=== PATIENT | female | born 1990 | race Hispanic/Latino ===

== ENCOUNTER 2016-08-31 00:11 | Emergency (ER) | payer OTHER ==
[~2016-08-31] VITALS: Ht 144.8 cm; Wt 77.7 kg
[~2016-08-31 00:11] MED LIST: FERR325C PO; NPR500T PO
[2016-08-31 00:29] VITALS: BP 115/75; PULSE 89; RESP 18; O2SAT 98
--- NOTE | 2016-08-31 03:14 | ED.REPORT ---
HPI-Headache Date of Service Aug 31, 2016 ED Provider: Tejas Medrano MD History of Present Illness: Ms. Anabell Concepcion is a 25 year old lady with a past medical history significant for spina bifida with CSF shunt and congenital uracus who presents to the [facility] Emergency Department with 1 week history of insomnia and 1 1/2 day history of vomiting and headache with witnessed syncopal episode yesterday. She reports the headache is in the right neck and into the right occipital region, near and around her shunt. She describes the pain as sharp and throbbing, 9/10 at the its worst. She reports she feels better with lying down and worst with eye movement and walking. Nursing Notes Stated Complaint: HEADACHE/ UNABLE TO SLEEP Chief Complaint: Headache Nursing Notes Reviewed: Yes Allergies: Coded Allergies: No Known Allergies (Verified Allergy, Unknown, 10/29/15) Scheduled Ferrous Sulfate (Iron) 325 Mg Capsule.er 325 MG PO BIDWM Scheduled PRN Naproxen (Naproxen) 500 Mg Tab 500 MG PO BID PRN PRN For Pain General Time Seen by MD: 00:51 Chief Complaint Headache Sudden in Onset?: Yes Past Medical History Past Medical History Notes: PCP: Dr Thorne Past Medical History Spina bifida (no problems) Past Surgical History Closure of spina bifida, shunt surgery Laparoscopy Family History Reviewed, not relevant Smoking History Never Smoker Social History Alcohol Use: Denies alcohol use Drug Use: Denies drug use Ambulatory Status Independent Review of Systems Review of Systems Note: A comprehensive review of systems was conducted with the patient and found to be negative except as above in the History of Present Illness. Physical Exam Physical Exam Notes: General: young lady upright in bed in no acute distress, mildly tearful, well-developed, well-nourished, appropriately interactive HEENT: Normocephalic, atraumatic. External ears without defect. Pupils equal, round, and reactive to light and accommodation, illicits painfull response with extreme lateral/medial/superior eye movement. Anicteric sclerae, moist conjunctivae, and no lid lag. Oropharynx free of erythema and cobble stoning with moist mucosa. Neck: Supple with full range of motion. No jugular venous distension. No bruits. No lymphadenopathy or thyromegaly. Cardiovascular: Regular rate and rhythm with no murmurs, rubs, or gallops appreciated Pulmonary: Clear to auscultation bilaterally with no crackles, wheezes, or rhonchi. Normal respiratory effort with no use of accessory muscles. Abdomen: Bowel tones present. Soft, nontender, nondistended. No hepatosplenomegaly or masses appreciated. Extremities: No clubbing, cyanosis, edema, or lymphadenopathy appreciated. Skin: Normal temperature, turgor, and texture; no rash, ulcers, or subcutaneous nodules appreciated. Neurological: Cranial nerves grossly intact. Normal muscle strength, tone, and bulk. Reflexes, coordination, and sensory function within normal limits. No known gait impairment. Psychiatric: Normal mood and affect. Alert and oriented to person, place, and time. Initial Vital Signs Vital Signs (First) Date Time Temp Pulse Resp B/P Pulse Ox O2 Delivery O2 Flow Rate FiO2 08/31/16 00:29 36.7 89 18 115/75 98 Interpretation & Diagnostics Lab Results Interpretation Test 08/31/16 03:00 Hold Urine Received (Received) Re-Eval/Medical Decision Med Decision/Clinical Course Ms. Anabell Concepcion recentraquel vomiting, syncope, and headache with CSF shunt history of vomiting and headache with witnessed syncopal episode yesterday we investigated CT brain w/out contrast, EKG and test. CT brain showed no change from previous studies and no acute intercrainial processes. The EKG was normal and test is negative. Follow up with your primary care physician. Discharge & Departure Shift Change Sign-Out Patient Care Transferred: Yes Discussed Complaint(s): Yes Imaging Studies: Imaging discussed Response to Therapy: Unchanged Impression: Primary Impression: Insomnia Insomnia type: unspecified Qualified Code: G47.00 - Insomnia, unspecified Additional Impressions: Headache Headache type: unspecified Headache chronicity pattern: acute headache Intractability: not intractable Qualified Code: R51 - Headache Vomiting Vomiting type: unspecified Vomiting Intractability: non-intractable Nausea presence: with nausea Qualified Code: R11.2 - Nausea with vomiting, unspecified Disposition: Home Discharge Condition All VS Reviewed: Yes Condition: Stable Referrals: Nydia Werner MD (PCP) Attending Statement Seen and examined with Dr Johnson on 08/30. Agree with above copies to: Nydia Werner MD, COREY P DO Aug 31, 2016 00:52 Tejas Medrano MD Sep 01, 2016 06:10
--- NOTE | 2016-08-31 08:44 | DRSVH ---
PROCEDURE: CT BRAIN WITHOUT CONTRAST ([id number]) INDICATIONS: Headache, syncope, vomiting, shunt TECHNIQUE: Noncontrast 4.5 mm thick angled axial sections acquired from the foramen magnum to the vertex, with c oronal reformats. COMPARISON: [facility], CT, CT BRAIN WO CON, 03/12/2016, 8:37. FINDINGS: Image quality: Excellent. CSF spaces: There is a right posterior parietal ventriculostomy shunt catheter redemonstrated which extends through the anterior horn lateral ventricle and appears unchanged in position. Ventricles ar e similar in size compared to the prior study given differences in slice acquisition with slitlike ap pearance of the anterior horns again noted. Basal cisterns are patent. There is mild prominence of extra-axial spaces which appears similar to the prior study. Brain: No intracranial hemorrhage or edema mass effect. Cerebellar tonsillar ectopia again noted. T here is also dysgenesis of the corpus callosum redemonstrated. Jalloh-white matter interface is preser skip. Skull and face: Calvarium and visualized facial bones are intact, without suspicious lesions. Sinuses: Visualized sinuses and mastoids are clear. IMPRESSION: 1. No definite acute intracranial abnormality. 2. Right parietal ventriculostomy shunt is stable in position with no evidence of hydrocephalus. 3. 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 Concordant with preliminary interpretation. Dictated by: Krish Beth M.D. on 08/31/2016 at 8:39 Approved by: Krish Beth M.D. on 08/31/2016 at 8:39
== END 2016-08-31 03:27 | disposition home or self-care (01) ==
LOC: SED 00:11
DX: G47.00 Insomnia, unspecified (principal); R51 Headache; R11.2 Nausea with vomiting, unspecified